=== PATIENT | male | born 1935 | race Caucasian/White ===

== ENCOUNTER → 2019-09-07 | Outpatient (CLI) | payer MEDICARE ==
[~2019-09-07] MED LIST: AEC81 PO; ALLO300T2 PO; AMIO100T4 PO; AMLO10TA7 PO; ATEN25TA PO; CYAN500L3 PO; FERR-82 PO; GEMF600T PO; LEVO125T11 PO; LOSA50TA64 PO; MULT-1258 PO; VITAMIN B1 PO; WARF4TAB72 PO
== END | disposition home or self-care (01) ==
LOC: RAH 08:47
PROVIDERS: ATTEND Internal Medicine Cardiovascular Disease
DX: I34.0 Nonrheumatic mitral (valve) insufficiency (principal); I51.7 Cardiomegaly; I95.1 Orthostatic hypotension; E78.5 Hyperlipidemia, unspecified; Z95.0 Presence of cardiac pacemaker
CPT/HCPCS: 71046; 93306

== ENCOUNTER → 2019-09-09 | Outpatient (CLI) | payer MEDICARE ==
[~2019-09-09] MED LIST changes: +ALBUTEROL SULFATE 0.083% 2.5 MG/3 ML INH IH ONE
== END | disposition home or self-care (01) ==
LOC: RESP 09:11
PROVIDERS: ATTEND Internal Medicine Cardiovascular Disease
DX: J44.9 Chronic obstructive pulmonary disease, unspecified (principal); R06.02 Shortness of breath; I95.1 Orthostatic hypotension
CPT/HCPCS: 94060; 94727; 94729

== ENCOUNTER 2020-12-27 09:10 | Emergency (ER) | payer MEDICARE ==
[~2020-12-27 09:10] MED LIST changes: -ALBUTEROL SULFATE 0.083% 2.5 MG/3 ML INH IH ONE; +AMLO-258 PO; -AMLO10TA7 PO
[2020-12-27] MEDS ORDERED: TETANUS/DIPHTHERIA TOXOID [ADULT] 0.5 ML VIAL IM ONE (10:41)
== END 2020-12-27 10:59 | disposition home or self-care (01) ==
LOC: EDH 09:10
DX: S51.812A Laceration without foreign body of left forearm, initial encounter (principal); N18.6 End stage renal disease; Z99.2 Dependence on renal dialysis; Z90.49 Acquired absence of other specified parts of digestive tract; W18.39XA Other fall on same level, initial encounter; Y93.89 Activity, other specified; Y92.89 Other specified places as the place of occurrence of the external cause; Y99.8 Other external cause status
CPT/HCPCS: 90471; 90714

== ENCOUNTER 2021-01-02 06:30 | Day surgery (SDC) | payer MEDICARE ==
[2020-12-30 12:22] LABS: BASOPHILS % (AUTO) 0.6 % (0.0-5.0); EOSINOPHILS % (AUTO) 4.6 % (0.0-8.0); HEMATOCRIT 34.8 % (42-54); LYMPHOCYTES % (AUTO) 12.3 % (21.0-51.0); MEAN CORPUSCULAR HEMOGLOBIN 30.1 pg (27.0-33.0); MEAN CORPUSCULAR HGB CONC 32.5 g/dL (32.0-36.0); MEAN CORPUSCULAR VOLUME 92.8 fL (79-99); MONOCYTES % (AUTO) 10.5 % (3.0-13.0); NEUTROPHILS % (AUTO) 71.5 % (40.0-77.0); PLATELET COUNT (AUTO) 361 K/uL (130-400); RED BLOOD CELL COUNT(AUTO) 3.75 MIL/uL (4.50-6.20); RED CELL DISTRIBUTION WIDTH 14.8 % (11.0-15.5); WHITE BLOOD COUNT (AUTO) 8.8 K/uL (4.8-10.8)
[2020-12-30 12:36] LABS: CREATININE 3.4 mg/dL (0.5-1.5); INR 1.05 (0.85-1.15); POTASSIUM 3.7 mmol/L (3.5-5.1); PROTHROMBIN TIME 11.4 SEC (9.6-11.6)
[2020-12-30 12:37] LABS: PARTIAL THROMBOPLASTIN TIME 28.4 SEC (26.3-35.5)
[2020-12-30 13:04] VITALS: BP 130/67
[~2021-01-02] VITALS: Ht 176.5 cm; Wt 73.2 kg
[2021-01-02] VITALS (18 sets, daily range): BP systolic 102–147; BP diastolic 57–96
[~2021-01-02 06:30] MED LIST changes: +0.9%NACL 1000ML 1,000 ML IV SCH
[2021-01-02] MEDS ORDERED: ALLO100T PO (07:28)
[2021-01-02] MEDS ORDERED: pindolol PO (07:28)
[2021-01-02] MEDS ORDERED: SUCR500T PO (07:28)
[2021-01-02] MEDS ORDERED: TAMS-1 PO (07:28)
[2021-01-02] MEDS ORDERED: vitamin d IV (07:28)
[2021-01-02] MEDS ORDERED: 0.9% NACL 500ML IV.SOLN 500 ML IV ONE (07:32)
[2021-01-02] MEDS ORDERED: LIDOCAINE HCL 2% VISCOUS 15 ML UDCUP ONE (07:32)
[2021-01-02 07:42] LABS: CREATININE 4.5 mg/dL (0.5-1.5)
[2021-01-02] MEDS ORDERED: NALOXONE HCL 0.4 MG/1 ML ML ONE (08:19)
[2021-01-02] MEDS ORDERED: FENTANYL CITRATE PF 50 MCG/1 ML 2ML VIAL ONE ×2 (08:19→09:26)
[2021-01-02] MEDS ORDERED: FLUMAZENIL 0.1MG/1ML 5ML VIAL IV ONE (08:19)
[2021-01-02] MEDS ORDERED: MIDAZOLAM HCL 1 MG/ML 2ML VIAL ONE ×2 (08:20→09:26)
[2021-01-02] MEDS ORDERED: APIXABAN 5 MG TABLET PO SCH (10:45)
== END 2021-01-02 11:50 | disposition home or self-care (01) ==
LOC: DAH 06:30
PROVIDERS: ATTEND Internal Medicine Cardiovascular Disease
DX: I48.0 Paroxysmal atrial fibrillation (principal); Z20.822 Contact with and (suspected) exposure to COVID-19; I45.10 Unspecified right bundle-branch block; I12.0 Hypertensive chronic kidney disease with stage 5 chronic kidney disease or end stage renal disease; N18.6 End stage renal disease; D64.9 Anemia, unspecified; Z79.01 Long term (current) use of anticoagulants; Z99.2 Dependence on renal dialysis; Z98.890 Other specified postprocedural states; Z79.890 Hormone replacement therapy
CPT/HCPCS: 36415 ×2; 80048 ×2; 85025; 85610; 85730; 87426; 92960; 93005 ×3; 93312; A4215; A4216; A4221; A4222; A4223 ×2; A4606; A4615; A4657 ×2; A4663; J2250; J3010; J7040; U0003; 93313; 99152; 99157; J2310; J3490

== ENCOUNTER 2021-11-17 13:02 | Emergency (ER) | payer MEDICARE ==
[~2021-11-17] VITALS: Ht 180.3 cm; Wt 77.1 kg
[~2021-11-17 13:02] MED LIST changes: -0.9%NACL 1000ML 1,000 ML IV SCH; -AEC81 PO; +ALLO100T PO; -ALLO300T2 PO; -AMIO100T4 PO; -AMLO-258 PO; -ATEN25TA PO; -CYAN500L3 PO; -LOSA50TA64 PO; -MULT-1258 PO; +SUCR500T PO; +TAMS-1 PO; -VITAMIN B1 PO; -WARF4TAB72 PO; +pindolol PO; +vitamin d IV
[2021-11-17 14:15] LABS: INFLUENZA TYPE A NEGATIVE FOR TYPE A (NEG); INFLUENZA TYPE B NEGATIVE FOR TYPE B (NEG)
[2021-11-17] MEDS ORDERED: AZITHROMYCIN 250 MG TABLET PO ONE (14:22)
[2021-11-17] MEDS ORDERED: ALBUTEROL INHALER 90MCG/INH IH ONE (14:22)
[2021-11-17] MEDS ORDERED: AMOX/CLAV 875/125MG TAB PO ONE (14:23)
[2021-11-17] MEDS ORDERED: ACETAMINOPHEN WITH CODEINE 1 TAB TAB ONE (14:23)
[2021-11-17] MEDS ORDERED: AZITHROMYCIN 250 MG TABLET PO SCH (14:30)
[2021-11-17] MEDS ORDERED: DEXAMETHASONE 4 MG TAB PO SCH (14:30)
[2021-11-17] MEDS ORDERED: AMOX/CLAV 875/125MG TAB PO SCH (14:30)
[2021-11-17] MEDS ORDERED: ACETAMINOPHEN WITH CODEINE 1 TAB TAB PO SCH (14:30)
[2021-11-17] MEDS ORDERED: ALBUTEROL INHALER 90MCG/INH IH PRN (14:30)
[2021-11-17] MEDS ORDERED: CODE10LI PO (15:17)
[2021-11-17] MEDS ORDERED: AMOX-429 PO (15:17)
[2021-11-17] MEDS ORDERED: ALBU8.5H8 IH (15:17)
[2021-11-17 15:27] VITALS: BP 136/66
== END 2021-11-17 15:35 | disposition home or self-care (01) ==
LOC: EDH 13:02
DX: J40 Bronchitis, not specified as acute or chronic (principal); I10 Essential (primary) hypertension; E11.9 Type 2 diabetes mellitus without complications; Z20.822 Contact with and (suspected) exposure to COVID-19; E78.00 Pure hypercholesterolemia, unspecified; Z79.52 Long term (current) use of systemic steroids
CPT/HCPCS: 71045; 87635; 87804 ×2; 99284; C9803

== ENCOUNTER 2021-12-08 13:26 | Inpatient (IN) | payer MEDICARE ==
[~2021-12-08] VITALS: Ht 177.8 cm; Wt 75.6 kg
[~2021-12-08 13:26] MED LIST changes: +ALBU8.5H8 IH; +AMOX-429 PO; +CODE10LI PO
[2021-12-08 13:51] LABS: ABG BASE EXCESS 0.1 mmol/L (-2.0-3.0); ABG HCO3 22.6 mmol/L (21.0-28.0); ABG OXYGEN SATURATION 96.1 % (95.0-99.0); ABG PCO2 31 mmHg (35-48)
[2021-12-08] MEDS ORDERED: CEFTRIAXONE 1G VIAL IVP ONE (14:30)
[2021-12-08 14:33] LABS: HEMATOCRIT 30.6 % (42-54); MEAN CORPUSCULAR VOLUME 93.3 fL (79-99); PLATELET COUNT (AUTO) 534 K/uL (130-400); RED BLOOD CELL COUNT(AUTO) 3.28 MIL/uL (4.50-6.20); RED CELL DISTRIBUTION WIDTH 14.3 % (11.0-15.5); WHITE BLOOD COUNT (AUTO) 11.7 K/uL (4.8-10.8)
[2021-12-08 14:54] LABS: ALBUMIN 1.9 g/dL (3.5-5.0); BILIRUBIN,TOTAL 0.3 mg/dL (0.2-1.0); MAGNESIUM 1.9 mg/dL (1.80-2.40); THYROID STIMULATING HORMONE 1.27 uIU/mL (0.36-3.74); TOTAL PROTEIN, SERUM 6.8 g/dL (6.0-8.3)
[2021-12-08 15:00] LABS: B-TYPE NATRIURETIC PEPTIDE 1850 pg/mL (0-100)
[2021-12-08 15:19] LABS: CRP QUANTITATIVE 157.03 mg/L (0.00-9.0)
[2021-12-08 15:59] LABS: BAND NEUTROPHILS % (MANUAL) 10 % (0-2); EOSINOPHILS % (MANUAL) 4 % (1-6); LYMPHOCYTES % (MANUAL) 6 % (22-44); MONOCYTES % (MANUAL) 6 % (2-9); SEGMENTED NEUTROPHILS % 74 % (40-70)
[2021-12-08 16:00] LABS: MAN.DIFF COMMENT-IMPRESSION MANUAL DIFFERENTIAL
[2021-12-08] MEDS: DILTIAZEM 125 MG/25 ML INJ 125 MG in 0.9%NACL 100ML 100 ML IV SCH (16:21)
[2021-12-08] MEDS: IPRATROPIUM 0.5 MG/2.5 ML INH IH SCH ×2 (18:49→23:49)
[2021-12-08] MEDS: DOXYCYCLINE HYCLATE 100 MG TABLET PO SCH (20:52)
[2021-12-08] MEDS: APIXABAN 2.5 MG TABLET PO SCH (21:00)
[2021-12-08] MEDS: METOPROLOL TARTRATE 25 MG TAB PO SCH (21:00)
[2021-12-09] VITALS (17 sets, daily range): BP systolic 93–151; BP diastolic 41–91
[2021-12-09] MEDS ORDERED: METO-408 PO (05:45)
[2021-12-09] MEDS ORDERED: APIX2.5T PO (05:45)
[2021-12-09] MEDS ORDERED: CALC0.253 PO (05:45)
[2021-12-09] MEDS ORDERED: CLON0.1T PO (05:45)
[2021-12-09] MEDS ORDERED: SODI650T PO (05:45)
[2021-12-09] MEDS ORDERED: TAMS-1 PO (05:45)
[2021-12-09] MEDS: IPRATROPIUM 0.5 MG/2.5 ML INH IH SCH ×4 (06:12→23:07)
[2021-12-09 06:17] LABS: BASOPHILS % (AUTO) 0.4 % (0.0-5.0); EOSINOPHILS % (AUTO) 5.1 % (0.0-8.0); HEMATOCRIT 26.4 % (42-54); LYMPHOCYTES % (AUTO) 9.2 % (21.0-51.0); MEAN CORPUSCULAR HEMOGLOBIN 29.9 pg (27.0-33.0); MEAN CORPUSCULAR VOLUME 90.7 fL (79-99); MONOCYTES % (AUTO) 11.2 % (3.0-13.0); PLATELET COUNT (AUTO) 485 K/uL (130-400); RED BLOOD CELL COUNT(AUTO) 2.91 MIL/uL (4.50-6.20); RED CELL DISTRIBUTION WIDTH 14.3 % (11.0-15.5)
[2021-12-09 06:38] LABS: ALBUMIN 1.7 g/dL (3.5-5.0); BILIRUBIN,TOTAL 0.3 mg/dL (0.2-1.0); CRP QUANTITATIVE 133.4 mg/L (0.00-9.0); POTASSIUM 4.4 mmol/L (3.5-5.1); TOTAL PROTEIN, SERUM 6.2 g/dL (6.0-8.3)
[2021-12-09 06:43] LABS: CREATININE 9.7 mg/dL (0.5-1.5)
[2021-12-09 07:26] LABS: ERYTHROCYTE SEDIMENTATION RATE 122 MM/HR (0-20)
[2021-12-09] MEDS: ALLOPURINOL 100 MG TABLET PO SCH (09:32)
[2021-12-09] MEDS: TAMSULOSIN HCL 0.4 MG CAP.ER.24H PO SCH (09:32)
[2021-12-09] MEDS: CEFTRIAXONE 1G VIAL IVP SCH (09:32)
[2021-12-09] MEDS: LEVOTHYROXINE 112 MCG TABLET PO SCH (09:32)
[2021-12-09] MEDS: METOPROLOL TARTRATE 25 MG TAB PO SCH ×2 (09:33→20:05)
[2021-12-09] MEDS: SODIUM BICARBONATE 650 MG TAB PO SCH (09:33)
[2021-12-09] MEDS: CALCITRIOL 0.25 MCG CAP PO SCH (09:33)
[2021-12-09] MEDS: APIXABAN 2.5 MG TABLET PO SCH (09:33)
[2021-12-09] MEDS: GEMFIBROZIL 600 MG TABLET PO SCH ×2 (09:33→20:05)
[2021-12-09] MEDS: Vitamin B Complex/Vit C/Folic Acid PO SCH (09:33)
[2021-12-09] MEDS: DOXYCYCLINE HYCLATE 100 MG TABLET PO SCH ×2 (09:33→20:05)
[2021-12-09] MEDS: VELPHORO 500 MG PO SCH ×3 (09:55→20:20)
[2021-12-09] MEDS ORDERED: EPOETIN ALFA-EPBX (ESRD) 10,000 UNIT/ML VIAL SQ SCH (10:00)
[2021-12-09 10:52] LABS: % IRON SATURATION 32.4 % (30-44)
[2021-12-09] MEDS: DILTIAZEM 125 MG/25 ML INJ 125 MG in 0.9%NACL 100ML 100 ML IV SCH (13:53)
[2021-12-09] MEDS: GUAIFENESIN-DM 200/20 MG 10 ML PO PRN ×2 (15:42→21:41)
[2021-12-09 18:10] LABS: HEPATITIS B SURFACE ANTIGEN Non-Reactive (Negative)
[2021-12-09] MEDS: BUDESONIDE 0.5 MG/2 ML INH IH SCH (19:00)
[2021-12-09] MEDS ORDERED: CALC667C10 PO (20:20)
[2021-12-10] VITALS (7 sets, daily range): BP systolic 90–129; BP diastolic 44–65
[2021-12-10] MEDS ORDERED: 0.9%NACL 100ML 100 ML ONE (02:04)
[2021-12-10] MEDS ORDERED: DILTIAZEM 50MG VIAL IV ONE (02:04)
[2021-12-10 03:53] LABS: HEMATOCRIT 24.9 % (42-54); MEAN CORPUSCULAR HEMOGLOBIN 29.5 pg (27.0-33.0); MEAN CORPUSCULAR HGB CONC 31.3 g/dL (32.0-36.0); MEAN CORPUSCULAR VOLUME 94.3 fL (79-99); PLATELET COUNT (AUTO) 454 K/uL (130-400); RED BLOOD CELL COUNT(AUTO) 2.64 MIL/uL (4.50-6.20); RED CELL DISTRIBUTION WIDTH 14.4 % (11.0-15.5)
[2021-12-10 04:09] LABS: PHOSPHORUS 7.2 mg/dL (2.5-4.9)
[2021-12-10 04:26] LABS: BASOPHILS % (MANUAL) 1 % (0-2); EOSINOPHILS % (MANUAL) 2 % (1-6); LYMPHOCYTES % (MANUAL) 8 % (22-44); MAN.DIFF COMMENT-IMPRESSION MANUAL DIFFERENTIAL; MONOCYTES % (MANUAL) 3 % (2-9); SEGMENTED NEUTROPHILS % 86 % (40-70)
[2021-12-10 04:27] LABS: PLATELET MORPHOLOGY COMMENT INCREASED
[2021-12-10] MEDS: BUDESONIDE 0.5 MG/2 ML INH IH SCH ×2 (06:00→19:05)
[2021-12-10] MEDS: IPRATROPIUM 0.5 MG/2.5 ML INH IH SCH ×4 (06:00→23:30)
[2021-12-10 06:53] LABS: POTASSIUM 4.4 mmol/L (3.5-5.1)
[2021-12-10 06:54] LABS: CREATININE 7.9 mg/dL (0.5-1.5)
[2021-12-10] MEDS: ALLOPURINOL 100 MG TABLET PO SCH (08:59)
[2021-12-10] MEDS: SODIUM BICARBONATE 650 MG TAB PO SCH (08:59)
[2021-12-10] MEDS: METOPROLOL TARTRATE 25 MG TAB PO SCH ×2 (08:59→20:39)
[2021-12-10] MEDS: GEMFIBROZIL 600 MG TABLET PO SCH ×2 (08:59→20:38)
[2021-12-10] MEDS: GUAIFENESIN-DM 200/20 MG 10 ML PO PRN ×2 (08:59→21:05)
[2021-12-10] MEDS: CALCITRIOL 0.25 MCG CAP PO SCH (08:59)
[2021-12-10] MEDS: Vitamin B Complex/Vit C/Folic Acid PO SCH (08:59)
[2021-12-10] MEDS: LEVOTHYROXINE 112 MCG TABLET PO SCH (08:59)
[2021-12-10] MEDS: TAMSULOSIN HCL 0.4 MG CAP.ER.24H PO SCH (09:00)
[2021-12-10] MEDS: DOXYCYCLINE HYCLATE 100 MG TABLET PO SCH ×2 (09:00→20:39)
[2021-12-10] MEDS: CEFTRIAXONE 1G VIAL IVP SCH (09:00)
[2021-12-10] MEDS ORDERED: NAPROXEN 250 MG TAB PO SCH (12:00)
[2021-12-10] MEDS: VELPHORO 500 MG PO SCH ×3 (14:00→21:07)
[2021-12-10] MEDS: DILTIAZEM 125 MG/25 ML INJ 125 MG in 0.9%NACL 100ML 100 ML IV SCH (14:34)
[2021-12-10] MEDS: CALCIUM AC 667MG CAP PO SCH (17:40)
[2021-12-10] MEDS: NAPROXEN 250 MG TAB PO SCH (20:38)
[2021-12-11] VITALS (19 sets, daily range): BP systolic 90–125; BP diastolic 48–80
[2021-12-11 03:53] LABS: HEMATOCRIT 24.8 % (42-54); MEAN CORPUSCULAR HEMOGLOBIN 29.8 pg (27.0-33.0); MEAN CORPUSCULAR HGB CONC 31.9 g/dL (32.0-36.0); MEAN CORPUSCULAR VOLUME 93.6 fL (79-99); RED BLOOD CELL COUNT(AUTO) 2.65 MIL/uL (4.50-6.20); RED CELL DISTRIBUTION WIDTH 14.3 % (11.0-15.5); WHITE BLOOD COUNT (AUTO) 10.1 K/uL (4.8-10.8)
[2021-12-11 04:24] LABS: ALBUMIN 1.8 g/dL (3.5-5.0); BILIRUBIN,TOTAL 0.4 mg/dL (0.2-1.0); PHOSPHORUS 7.4 mg/dL (2.5-4.9); POTASSIUM 4.7 mmol/L (3.5-5.1); TOTAL PROTEIN, SERUM 5.7 g/dL (6.0-8.3)
[2021-12-11 05:14] LABS: CREATININE 9.1 mg/dL (0.5-1.5)
[2021-12-11] MEDS: IPRATROPIUM 0.5 MG/2.5 ML INH IH SCH ×4 (06:00→23:24)
[2021-12-11] MEDS: BUDESONIDE 0.5 MG/2 ML INH IH SCH ×2 (06:00→18:47)
[2021-12-11] MEDS: LEVOTHYROXINE 112 MCG TABLET PO SCH (08:43)
[2021-12-11] MEDS: TAMSULOSIN HCL 0.4 MG CAP.ER.24H PO SCH (08:51)
[2021-12-11] MEDS: CALCITRIOL 0.25 MCG CAP PO SCH (08:52)
[2021-12-11] MEDS: Vitamin B Complex/Vit C/Folic Acid PO SCH (08:52)
[2021-12-11] MEDS: SODIUM BICARBONATE 650 MG TAB PO SCH (08:52)
[2021-12-11] MEDS: CEFTRIAXONE 1G VIAL IVP SCH (08:52)
[2021-12-11] MEDS: ALLOPURINOL 100 MG TABLET PO SCH (08:52)
[2021-12-11] MEDS: CALCIUM AC 667MG CAP PO SCH ×3 (08:52→16:56)
[2021-12-11] MEDS: DOXYCYCLINE HYCLATE 100 MG TABLET PO SCH ×2 (08:52→21:15)
[2021-12-11] MEDS: METOPROLOL TARTRATE 25 MG TAB PO SCH ×3 (08:52→21:15)
[2021-12-11] MEDS: VELPHORO 500 MG PO SCH ×3 (08:54→21:00)
[2021-12-11] MEDS: GEMFIBROZIL 600 MG TABLET PO SCH ×2 (09:00→21:15)
[2021-12-11] MEDS: NAPROXEN 250 MG TAB PO SCH ×2 (09:00→21:15)
[2021-12-11] MEDS: GUAIFENESIN-DM 200/20 MG 10 ML PO PRN (12:00)
[2021-12-12 00:50] VITALS: BP_SYST 97; BP_DIAS 54; BP_DIAS 73
[2021-12-12 04:17] LABS: HEMATOCRIT 24.7 % (42-54); MEAN CORPUSCULAR HEMOGLOBIN 29.3 pg (27.0-33.0); MEAN CORPUSCULAR VOLUME 91.5 fL (79-99); RED BLOOD CELL COUNT(AUTO) 2.7 MIL/uL (4.50-6.20); RED CELL DISTRIBUTION WIDTH 14.3 % (11.0-15.5); WHITE BLOOD COUNT (AUTO) 10.3 K/uL (4.8-10.8)
[2021-12-12 04:35] LABS: CREATININE 6.4 mg/dL (0.5-1.5); POTASSIUM 3.9 mmol/L (3.5-5.1)
[2021-12-12 04:48] VITALS: BP 92/60
[2021-12-12] MEDS: BUDESONIDE 0.5 MG/2 ML INH IH SCH ×2 (06:59→18:00)
[2021-12-12] MEDS: IPRATROPIUM 0.5 MG/2.5 ML INH IH SCH ×2 (06:59→18:00)
[2021-12-12 08:00] VITALS: BP 135/51
[2021-12-12] MEDS: LEVOTHYROXINE 112 MCG TABLET PO SCH (09:00)
[2021-12-12] MEDS: CALCITRIOL 0.25 MCG CAP PO SCH (09:56)
[2021-12-12] MEDS: METOPROLOL TARTRATE 25 MG TAB PO SCH ×3 (09:56→21:40)
[2021-12-12] MEDS: Vitamin B Complex/Vit C/Folic Acid PO SCH (09:56)
[2021-12-12] MEDS: NAPROXEN 250 MG TAB PO SCH ×2 (09:56→21:40)
[2021-12-12] MEDS: GEMFIBROZIL 600 MG TABLET PO SCH ×2 (09:56→21:40)
[2021-12-12] MEDS: TAMSULOSIN HCL 0.4 MG CAP.ER.24H PO SCH (09:56)
[2021-12-12] MEDS: DOXYCYCLINE HYCLATE 100 MG TABLET PO SCH ×2 (09:56→21:40)
[2021-12-12] MEDS: ALLOPURINOL 100 MG TABLET PO SCH (09:56)
[2021-12-12] MEDS: CEFTRIAXONE 1G VIAL IVP SCH (09:56)
[2021-12-12] MEDS: CALCIUM AC 667MG CAP PO SCH ×3 (09:56→18:02)
[2021-12-12] MEDS: SODIUM BICARBONATE 650 MG TAB PO SCH (09:57)
[2021-12-12] MEDS: VELPHORO 500 MG PO SCH ×3 (09:59→16:30)
[2021-12-12] MEDS ORDERED: PHARMACY COMMUNICATION MISC SCH ×2 (10:00→15:30)
[2021-12-12 12:00] VITALS: BP 102/68
[2021-12-12 16:00] VITALS: BP 112/62
[2021-12-12 19:51] VITALS: BP 135/66
[2021-12-13] VITALS (23 sets, daily range): BP systolic 98–128; BP diastolic 53–81
[2021-12-13 03:46] LABS: HEMATOCRIT 23.7 % (42-54); MEAN CORPUSCULAR HEMOGLOBIN 29.2 pg (27.0-33.0); MEAN CORPUSCULAR HGB CONC 32.1 g/dL (32.0-36.0); MEAN CORPUSCULAR VOLUME 91.2 fL (79-99); NUCLEATED RED BLOOD CELLS 0.2 % (0.0-0.19); RED BLOOD CELL COUNT(AUTO) 2.6 MIL/uL (4.50-6.20); RED CELL DISTRIBUTION WIDTH 14.4 % (11.0-15.5); WHITE BLOOD COUNT (AUTO) 9.6 K/uL (4.8-10.8)
[2021-12-13 03:59] LABS: % IRON SATURATION 55.6 % (30-44)
[2021-12-13 04:04] LABS: ALBUMIN 1.7 g/dL (3.5-5.0); BILIRUBIN,TOTAL 0.5 mg/dL (0.2-1.0); CREATININE 7.7 mg/dL (0.5-1.5); MAGNESIUM 1.8 mg/dL (1.80-2.40); PHOSPHORUS 5.3 mg/dL (2.5-4.9); POTASSIUM 4.2 mmol/L (3.5-5.1); TOTAL PROTEIN, SERUM 5.4 g/dL (6.0-8.3)
[2021-12-13] MEDS: IPRATROPIUM 0.5 MG/2.5 ML INH IH SCH ×3 (06:00→19:06)
[2021-12-13] MEDS: BUDESONIDE 0.5 MG/2 ML INH IH SCH ×2 (06:00→19:06)
[2021-12-13] MEDS: LEVOTHYROXINE 112 MCG TABLET PO SCH (06:47)
[2021-12-13] MEDS: CALCIUM AC 667MG CAP PO SCH ×3 (08:52→17:05)
[2021-12-13] MEDS: DOXYCYCLINE HYCLATE 100 MG TABLET PO SCH ×2 (08:52→20:28)
[2021-12-13] MEDS: NAPROXEN 250 MG TAB PO SCH ×2 (08:52→20:26)
[2021-12-13] MEDS: ALLOPURINOL 100 MG TABLET PO SCH (08:52)
[2021-12-13] MEDS: GEMFIBROZIL 600 MG TABLET PO SCH ×2 (08:52→20:25)
[2021-12-13] MEDS: CALCITRIOL 0.25 MCG CAP PO SCH (08:52)
[2021-12-13] MEDS: Vitamin B Complex/Vit C/Folic Acid PO SCH (08:52)
[2021-12-13] MEDS: SODIUM BICARBONATE 650 MG TAB PO SCH (08:52)
[2021-12-13] MEDS: VELPHORO 500 MG PO SCH ×3 (08:59→16:56)
[2021-12-13] MEDS: METOPROLOL TARTRATE 25 MG TAB PO SCH ×3 (09:00→20:26)
[2021-12-13] MEDS: DILTIAZEM 60MG TAB PO SCH ×3 (09:00→17:04)
[2021-12-13] MEDS ORDERED: MAGNESIUM 2GM PREMIX 50ML 50 ML IV PRN (13:00)
[2021-12-13] MEDS: CEFTRIAXONE 1G VIAL IVP SCH (13:14)
[2021-12-13] MEDS: TAMSULOSIN HCL 0.4 MG CAP.ER.24H PO SCH (13:16)
[2021-12-13] MEDS: EPOETIN ALFA-EPBX (ESRD) 10,000 UNIT/ML VIAL SQ SCH (20:26)
[2021-12-13] MEDS: GUAIFENESIN-DM 200/20 MG 10 ML PO PRN (22:26)
[2021-12-14] VITALS (7 sets, daily range): BP systolic 92–106; BP diastolic 48–64
[2021-12-14] MEDS: IPRATROPIUM 0.5 MG/2.5 ML INH IH SCH ×4 (00:18→19:21)
[2021-12-14] MEDS: DILTIAZEM 60MG TAB PO SCH ×4 (00:44→16:05)
[2021-12-14] MEDS: BUDESONIDE 0.5 MG/2 ML INH IH SCH ×2 (06:00→19:21)
[2021-12-14] MEDS: CALCIUM AC 667MG CAP PO SCH ×3 (06:15→16:05)
[2021-12-14] MEDS: LEVOTHYROXINE 112 MCG TABLET PO SCH (06:15)
[2021-12-14] MEDS: VELPHORO 500 MG PO SCH ×3 (06:36→16:06)
[2021-12-14 09:00] LABS: BASOPHILS % (AUTO) 0.3 % (0.0-5.0); EOSINOPHILS % (AUTO) 2.5 % (0.0-8.0); HEMATOCRIT 27.9 % (42-54); LYMPHOCYTES % (AUTO) 9.8 % (21.0-51.0); MEAN CORPUSCULAR HEMOGLOBIN 30.1 pg (27.0-33.0); MEAN CORPUSCULAR HGB CONC 31.9 g/dL (32.0-36.0); MEAN CORPUSCULAR VOLUME 94.3 fL (79-99); MONOCYTES % (AUTO) 9.3 % (3.0-13.0); NUCLEATED RED BLOOD CELLS 0.3 % (0.0-0.19); PLATELET COUNT (AUTO) 519 K/uL (130-400); RED BLOOD CELL COUNT(AUTO) 2.96 MIL/uL (4.50-6.20); RED CELL DISTRIBUTION WIDTH 14.7 % (11.0-15.5); WHITE BLOOD COUNT (AUTO) 11.3 K/uL (4.8-10.8)
[2021-12-14 09:08] LABS: CREATININE 5.9 mg/dL (0.5-1.5); POTASSIUM 4.2 mmol/L (3.5-5.1)
[2021-12-14 09:15] LABS: BILIRUBIN,TOTAL 0.6 mg/dL (0.2-1.0); TOTAL PROTEIN, SERUM 6.2 g/dL (6.0-8.3)
[2021-12-14] MEDS: CEFTRIAXONE 1G VIAL IVP SCH (09:26)
[2021-12-14] MEDS: CALCITRIOL 0.25 MCG CAP PO SCH (09:26)
[2021-12-14] MEDS: ALLOPURINOL 100 MG TABLET PO SCH (09:27)
[2021-12-14] MEDS: GEMFIBROZIL 600 MG TABLET PO SCH ×2 (09:27→20:44)
[2021-12-14] MEDS: Vitamin B Complex/Vit C/Folic Acid PO SCH (09:27)
[2021-12-14] MEDS: TAMSULOSIN HCL 0.4 MG CAP.ER.24H PO SCH (09:27)
[2021-12-14] MEDS: NAPROXEN 250 MG TAB PO SCH ×2 (09:27→20:44)
[2021-12-14] MEDS: METOPROLOL TARTRATE 25 MG TAB PO SCH ×3 (09:27→20:44)
[2021-12-14] MEDS: SODIUM BICARBONATE 650 MG TAB PO SCH (09:27)
[2021-12-14] MEDS: DOXYCYCLINE HYCLATE 100 MG TABLET PO SCH ×2 (09:27→20:44)
[2021-12-15] VITALS (22 sets, daily range): BP systolic 84–131; BP diastolic 45–96
[2021-12-15] MEDS: DILTIAZEM 60MG TAB PO SCH ×6 (00:17→23:45)
[2021-12-15] MEDS: IPRATROPIUM 0.5 MG/2.5 ML INH IH SCH ×5 (01:01→23:01)
[2021-12-15 04:05] LABS: HEMATOCRIT 25.7 % (42-54); MEAN CORPUSCULAR HEMOGLOBIN 29.2 pg (27.0-33.0); MEAN CORPUSCULAR HGB CONC 31.9 g/dL (32.0-36.0); MEAN CORPUSCULAR VOLUME 91.5 fL (79-99); NUCLEATED RED BLOOD CELLS 0.5 % (0.0-0.19); RED BLOOD CELL COUNT(AUTO) 2.81 MIL/uL (4.50-6.20); RED CELL DISTRIBUTION WIDTH 14.8 % (11.0-15.5); WHITE BLOOD COUNT (AUTO) 10.9 K/uL (4.8-10.8)
[2021-12-15 04:20] LABS: ALBUMIN 1.9 g/dL (3.5-5.0); BILIRUBIN,TOTAL 0.6 mg/dL (0.2-1.0); CREATININE 7.1 mg/dL (0.5-1.5); POTASSIUM 4.6 mmol/L (3.5-5.1); TOTAL PROTEIN, SERUM 5.7 g/dL (6.0-8.3)
[2021-12-15] MEDS: CALCIUM AC 667MG CAP PO SCH ×3 (06:13→17:12)
[2021-12-15] MEDS: LEVOTHYROXINE 112 MCG TABLET PO SCH (06:13)
[2021-12-15] MEDS: VELPHORO 500 MG PO SCH ×3 (06:14→17:12)
[2021-12-15] MEDS: BUDESONIDE 0.5 MG/2 ML INH IH SCH ×2 (06:49→18:00)
[2021-12-15] MEDS: METOPROLOL TARTRATE 25 MG TAB PO SCH ×4 (09:00→21:20)
[2021-12-15] MEDS ORDERED: PEG 3350/NA SULF,BICARB,CL/KCL 4000 ML SOLN PO ONE (16:00)
[2021-12-15] MEDS: DOXYCYCLINE HYCLATE 100 MG TABLET PO SCH ×2 (16:59→21:20)
[2021-12-15] MEDS: TAMSULOSIN HCL 0.4 MG CAP.ER.24H PO SCH (16:59)
[2021-12-15] MEDS: CEFTRIAXONE 1G VIAL IVP SCH (16:59)
[2021-12-15] MEDS: CALCITRIOL 0.25 MCG CAP PO SCH (16:59)
[2021-12-15] MEDS: GEMFIBROZIL 600 MG TABLET PO SCH ×2 (16:59→21:20)
[2021-12-15] MEDS: Vitamin B Complex/Vit C/Folic Acid PO SCH (16:59)
[2021-12-15] MEDS: ALLOPURINOL 100 MG TABLET PO SCH (17:00)
[2021-12-15] MEDS: SODIUM BICARBONATE 650 MG TAB PO SCH (17:00)
[2021-12-15] MEDS ORDERED: LORAZEPAM 2 MG/ML 1 ML VIAL IVP PRN (17:30)
[2021-12-15] MEDS ORDERED: PEG 3350/NA SULF,BICARB,CL/KCL 4000 ML SOLN PO SCH (17:30)
[2021-12-15] MEDS ORDERED: MORPHINE PCA 50MG/50ML 50 ML IV PRN (17:30)
[2021-12-15] MEDS: EPOETIN ALFA-EPBX (ESRD) 10,000 UNIT/ML VIAL SQ SCH (21:20)
[2021-12-16] VITALS (24 sets, daily range): BP systolic 60–115; BP diastolic 40–76
[2021-12-16] MEDS: LEVOTHYROXINE 112 MCG TABLET PO SCH (05:19)
[2021-12-16] MEDS: DILTIAZEM 60MG TAB PO SCH ×3 (05:19→17:07)
[2021-12-16] MEDS: BUDESONIDE 0.5 MG/2 ML INH IH SCH ×2 (06:00→18:20)
[2021-12-16] MEDS: IPRATROPIUM 0.5 MG/2.5 ML INH IH SCH ×4 (06:00→23:38)
[2021-12-16] MEDS: VELPHORO 500 MG PO SCH ×3 (07:30→16:19)
[2021-12-16] MEDS: CALCIUM AC 667MG CAP PO SCH ×3 (07:30→15:49)
[2021-12-16 07:59] LABS: HEMATOCRIT 29.9 % (42-54); MEAN CORPUSCULAR HEMOGLOBIN 29.3 pg (27.0-33.0); MEAN CORPUSCULAR HGB CONC 31.4 g/dL (32.0-36.0); MEAN CORPUSCULAR VOLUME 93.1 fL (79-99); NUCLEATED RED BLOOD CELLS 0.7 % (0.0-0.19); RED BLOOD CELL COUNT(AUTO) 3.21 MIL/uL (4.50-6.20); RED CELL DISTRIBUTION WIDTH 15.6 % (11.0-15.5); WHITE BLOOD COUNT (AUTO) 11.3 K/uL (4.8-10.8)
[2021-12-16] MEDS: SODIUM BICARBONATE 650 MG TAB PO SCH (07:59)
[2021-12-16] MEDS: CALCITRIOL 0.25 MCG CAP PO SCH (07:59)
[2021-12-16] MEDS: Vitamin B Complex/Vit C/Folic Acid PO SCH (07:59)
[2021-12-16] MEDS: GEMFIBROZIL 600 MG TABLET PO SCH ×2 (07:59→20:39)
[2021-12-16] MEDS: ALLOPURINOL 100 MG TABLET PO SCH (07:59)
[2021-12-16] MEDS: TAMSULOSIN HCL 0.4 MG CAP.ER.24H PO SCH (08:00)
[2021-12-16] MEDS: DOXYCYCLINE HYCLATE 100 MG TABLET PO SCH ×2 (08:00→20:39)
[2021-12-16] MEDS: METOPROLOL TARTRATE 25 MG TAB PO SCH ×3 (08:00→20:39)
[2021-12-16 08:15] LABS: ALBUMIN 2.1 g/dL (3.5-5.0); BILIRUBIN,TOTAL 0.5 mg/dL (0.2-1.0); CREATININE 5.6 mg/dL (0.5-1.5); POTASSIUM 4.4 mmol/L (3.5-5.1); TOTAL PROTEIN, SERUM 6.6 g/dL (6.0-8.3)
[2021-12-16] MEDS: CEFTRIAXONE 1G VIAL IVP SCH (08:51)
[2021-12-16] MEDS ORDERED: PROPOFOL 10 MG/ML 20ML VIAL IV ONE (09:39)
[2021-12-16] MEDS ORDERED: LIDOCAINE PF 100MG/5ML (2%) SYRINGE 5ML ONE (09:40)
[2021-12-16] MEDS ORDERED: PHENYLEPHRINE HCL 10 MG/ML 1ML VIAL IV ONE (09:41)
[2021-12-16] MEDS ORDERED: EPHEDRINE SULFATE 50 MG/ML AMPULE ONE (10:14)
[2021-12-16] MEDS ORDERED: VELPHORO 500 MG PO SCH (16:03)
[2021-12-17 03:27] VITALS: BP 97/74
[2021-12-17 04:30] LABS: BASOPHILS % (AUTO) 0.7 % (0.0-5.0); EOSINOPHILS % (AUTO) 2.7 % (0.0-8.0); HEMATOCRIT 26.8 % (42-54); LYMPHOCYTES % (AUTO) 13.7 % (21.0-51.0); MEAN CORPUSCULAR HEMOGLOBIN 29.9 pg (27.0-33.0); MEAN CORPUSCULAR HGB CONC 32.1 g/dL (32.0-36.0); MEAN CORPUSCULAR VOLUME 93.1 fL (79-99); MONOCYTES % (AUTO) 9.7 % (3.0-13.0); NEUTROPHILS % (AUTO) 70.5 % (40.0-77.0); NUCLEATED RED BLOOD CELLS 1.3 % (0.0-0.19); PLATELET COUNT (AUTO) 545 K/uL (130-400); RED BLOOD CELL COUNT(AUTO) 2.88 MIL/uL (4.50-6.20); RED CELL DISTRIBUTION WIDTH 15.7 % (11.0-15.5); WHITE BLOOD COUNT (AUTO) 9.9 K/uL (4.8-10.8)
[2021-12-17 04:40] LABS: CREATININE 6.5 mg/dL (0.5-1.5)
[2021-12-17] MEDS: DILTIAZEM 60MG TAB PO SCH ×4 (05:21→18:33)
[2021-12-17] MEDS: LEVOTHYROXINE 112 MCG TABLET PO SCH (05:54)
[2021-12-17] MEDS: BUDESONIDE 0.5 MG/2 ML INH IH SCH ×2 (06:00→18:43)
[2021-12-17] MEDS: IPRATROPIUM 0.5 MG/2.5 ML INH IH SCH ×3 (06:00→18:43)
[2021-12-17] MEDS: Vitamin B Complex/Vit C/Folic Acid PO SCH (08:19)
[2021-12-17] MEDS: CALCIUM AC 667MG CAP PO SCH ×3 (08:19→16:30)
[2021-12-17] MEDS: DOXYCYCLINE HYCLATE 100 MG TABLET PO SCH ×2 (08:20→21:10)
[2021-12-17] MEDS: GEMFIBROZIL 600 MG TABLET PO SCH ×2 (08:20→21:10)
[2021-12-17] MEDS: SODIUM BICARBONATE 650 MG TAB PO SCH (08:20)
[2021-12-17] MEDS: CALCITRIOL 0.25 MCG CAP PO SCH (08:20)
[2021-12-17] MEDS: TAMSULOSIN HCL 0.4 MG CAP.ER.24H PO SCH (08:20)
[2021-12-17] MEDS: CEFTRIAXONE 1G VIAL IVP SCH (08:21)
[2021-12-17] MEDS: VELPHORO 500 MG PO SCH ×3 (08:22→16:30)
[2021-12-17] MEDS: ALLOPURINOL 100 MG TABLET PO SCH (08:24)
[2021-12-17] MEDS: METOPROLOL TARTRATE 25 MG TAB PO SCH ×3 (08:25→21:10)
[2021-12-17 08:42] VITALS: BP 96/62
[2021-12-17 12:16] VITALS: BP 115/61
[2021-12-17 16:37] VITALS: BP 96/57
[2021-12-17 20:00] VITALS: BP 101/54
[2021-12-17] MEDS ORDERED: FAMOTIDINE 20MG TAB PO SCH (21:00)
[2021-12-17] MEDS: DRONABINOL 2.5 MG CAP PO SCH (21:10)
[2021-12-18] VITALS (20 sets, daily range): BP systolic 92–128; BP diastolic 51–99
[2021-12-18] MEDS: DILTIAZEM 60MG TAB PO SCH ×3 (00:27→11:38)
[2021-12-18] MEDS: LEVOTHYROXINE 112 MCG TABLET PO SCH (05:48)
[2021-12-18] MEDS: CALCITRIOL 0.25 MCG CAP PO SCH (07:40)
[2021-12-18] MEDS: SODIUM BICARBONATE 650 MG TAB PO SCH (07:42)
[2021-12-18] MEDS: CEFTRIAXONE 1G VIAL IVP SCH (07:42)
[2021-12-18] MEDS: CALCIUM AC 667MG CAP PO SCH ×2 (07:42→11:43)
[2021-12-18] MEDS: GEMFIBROZIL 600 MG TABLET PO SCH (07:42)
[2021-12-18] MEDS: DRONABINOL 2.5 MG CAP PO SCH (07:42)
[2021-12-18] MEDS: DOXYCYCLINE HYCLATE 100 MG TABLET PO SCH (07:42)
[2021-12-18] MEDS: ALLOPURINOL 100 MG TABLET PO SCH (07:42)
[2021-12-18] MEDS: TAMSULOSIN HCL 0.4 MG CAP.ER.24H PO SCH (07:42)
[2021-12-18] MEDS: METOPROLOL TARTRATE 25 MG TAB PO SCH ×2 (07:42→13:53)
[2021-12-18] MEDS: Vitamin B Complex/Vit C/Folic Acid PO SCH (07:42)
[2021-12-18] MEDS: VELPHORO 500 MG PO SCH ×2 (07:47→11:30)
[2021-12-18] MEDS ORDERED: METO-391 PO (08:56)
[2021-12-18] MEDS ORDERED: DILT240C97 PO (08:56)
[2021-12-18] MEDS ORDERED: CALCITRIOL 0.25 MCG CAP PO SCH (09:00)
[2021-12-18] MEDS ORDERED: TAMS-1 PO (10:02)
[2021-12-18] MEDS ORDERED: LEVO112T7 PO (10:02)
== END 2021-12-18 14:38 | disposition home or self-care (01) | DRG 308 ==
LOC: EDH 13:26 → EDHIP 13:27 → 2DH 12-09 01:50
PROVIDERS: ADMIT Internal Medicine; ATTEND Internal Medicine
PROC: 5A1D70Z Performance of Urinary Filtration, Intermittent, Less than 6 Hours Per Day (ICD-10-PCS; 2021-12-09)
PROC: 5A1D70Z Performance of Urinary Filtration, Intermittent, Less than 6 Hours Per Day (ICD-10-PCS; 2021-12-11)
PROC: 5A1D70Z Performance of Urinary Filtration, Intermittent, Less than 6 Hours Per Day (ICD-10-PCS; 2021-12-13)
PROC: 5A1D70Z Performance of Urinary Filtration, Intermittent, Less than 6 Hours Per Day (ICD-10-PCS; 2021-12-15)
PROC: 0DB68ZX Excision of Stomach, Via Natural or Artificial Opening Endoscopic, Diagnostic (ICD-10-PCS; principal; 2021-12-16)
PROC: 0DJD8ZZ Inspection of Lower Intestinal Tract, Via Natural or Artificial Opening Endoscopic (ICD-10-PCS; 2021-12-16)
PROC: 0DB98ZX Excision of Duodenum, Via Natural or Artificial Opening Endoscopic, Diagnostic (ICD-10-PCS; 2021-12-16)
PROC: 5A1D70Z Performance of Urinary Filtration, Intermittent, Less than 6 Hours Per Day (ICD-10-PCS; 2021-12-18)
DX: I48.19 Other persistent atrial fibrillation (principal); N18.6 End stage renal disease; E43 Unspecified severe protein-calorie malnutrition; K29.71 Gastritis, unspecified, with bleeding; K57.31 Diverticulosis of large intestine without perforation or abscess with bleeding; I31.3 Pericardial effusion (noninflammatory); I12.0 Hypertensive chronic kidney disease with stage 5 chronic kidney disease or end stage renal disease; E87.1 Hypo-osmolality and hyponatremia; J20.9 Acute bronchitis, unspecified; D64.9 Anemia, unspecified; E78.5 Hyperlipidemia, unspecified; I47.2 Ventricular tachycardia; I42.9 Cardiomyopathy, unspecified; E03.9 Hypothyroidism, unspecified; I25.10 Atherosclerotic heart disease of native coronary artery without angina pectoris; N40.0 Benign prostatic hyperplasia without lower urinary tract symptoms; Z20.822 Contact with and (suspected) exposure to COVID-19; I49.5 Sick sinus syndrome; K31.89 Other diseases of stomach and duodenum; D50.9 Iron deficiency anemia, unspecified; K64.1 Second degree hemorrhoids; K64.8 Other hemorrhoids; Z68.23 Body mass index [BMI] 23.0-23.9, adult; Z87.01 Personal history of pneumonia (recurrent); Z87.891 Personal history of nicotine dependence; Z95.0 Presence of cardiac pacemaker; Z99.2 Dependence on renal dialysis; Z79.01 Long term (current) use of anticoagulants; Z79.899 Other long term (current) drug therapy; Z82.3 Family history of stroke; Z80.9 Family history of malignant neoplasm, unspecified; Z83.3 Family history of diabetes mellitus; Z82.0 Family history of epilepsy and other diseases of the nervous system; Z82.49 Family history of ischemic heart disease and other diseases of the circulatory system; Z82.5 Family history of asthma and other chronic lower respiratory diseases
CPT/HCPCS: 36415; 43239; 45378; 71045; 71250; 80048; 80053; 82270; 82306; 82607; 82728; 82746; 82803; 83540; 83550; 83605; 83735; 83880; 84100; 84145; 84443; 84484; 85025; 85027; 85651; 86140; 86704; 86706; 87040; 87340; 87486; 87581; 87633; 87635; 87798; 87804; 90935; 92610; 93005; 93306; 93356; 93970; 94640; 94664; 97039; A4606; G0378; J0696; J2001; J2370; J2704; J3490; J7030; Q0167